=== PATIENT | female | born 1985 | race Caucasian/White ===

== ENCOUNTER → 2018-12-07 | Outpatient (CLI) | payer BC ==
[~2018-12-07] MED LIST: IOPAMIDOL 370 MG/ML 200 ML INFUS..BTL INJ ONE; NITROGLYCERIN 0.4 MG SUBL ONE; SODIUM CHLORIDE 0.9% 100 ML 100 ML ONE
--- NOTE | 2018-12-08 16:46 | Diagnostic Imaging Report ---
EXAM: CALCIUM SCORE AND CORONARY CTA INDICATION: ^[id number] ^[id number] ^PRECORDIAL PAIN COMPARISON: None. TECHNIQUE: Multi-detector CT technology was employed (64 MDCT LUXA). Minimal slice thickness was performed following the intravenous administration of contrast material. The patient was premedicated with 0.4 mg sublingual nitroglycerin for heart rate control and coronary dilation, respectively. No beta chavez was administered due to low heart rate during the exam. IV CONTRAST: 100 mL of Isovue-370 ORAL CONTRAST: None COMPLICATIONS: None RADIATION DOSE: Total DLP: 1492 mGy*cm Estimated effective dose: (DLP x 0.015 x size factor) mSv CTDIvol has been reviewed. It is below the limits set by the Radiation Protocol Committee (RPC). For optimization of anatomic evaluation, multiplanar reconstruction, maximum intensity projections, and advanced 3-D off-line postprocessing were performed on a dedicated stand-alone workstation under the direct supervision of the interpreting physician. QUALITY: Fair Study Limitations: Motion artifact limits evaluation of the coronary arteries. FINDINGS: CALCIUM SCORE: The observed Agatston Calcium Score of 0 is at percentile 50% for subjects of the same age and gender who are free of clinical cardiovascular disease and treated diabetes. The Agatston score for each vessel is as follows: LM: 0 LAD: 0 LCx: 0 RCA: 0 DISTRIBUTION OF THE CALCIFIED PLAQUES: No calcified plaques identified in the coronary arteries. CORONARY ANATOMY: There is normal origin of the coronary arteries. Left Main Coronary Artery: The left main is normal sized vessel that bifurcates into the LAD and circumflex. There is no evidence of atherosclerotic changes or stenotic disease. Left Anterior Descending Coronary Artery: The LAD is a normal size vessel that wraps around the apex. It gives rise to 2 acute diagonal branches. Motion artifact limits evaluation of the mid LAD. Otherwise, no evidence of atherosclerotic changes or stenotic disease. Left Circumflex Coronary Artery: The LCX is a normal size vessel, which is non-dominant. It gives rise to 2 obtuse marginal branches. There is no evidence of atherosclerotic changes or stenotic disease. Right Coronary Artery: The RCA is a normal size vessel, which is dominant. It gives rise to a conus branch, AV manny branch, and 2 acute marginal branches. In its distal segment it bifurcates into the PDA and PV branch. The mid RCA is nondiagnostic due to motion artifact. No significant atherosclerotic changes of stenotic disease in the remaining RCA. CARDIAC MORPHOLOGY AND FUNCTION: The right and left atria and ventricles are morphologically normal. LIMITED CHEST: Limited views of the visualized chest show no abnormality within chest wall and mediastinum. No mediastinal lymphadenopathy. The visualized lungs are clear. The visualized portions of the ascending and descending thoracic aorta are of normal size. LIMITED ABDOMEN: The spleen is mildly prominent measuring 12.2 cm in length. BONES: No acute osseous abnormalities. IMPRESSION: 1. Total Agatston Calcium Score: 0 that corresponds to percentile 50%, representing no identifiable calcified plaques in the coronary arteries. 2. Normal coronary anatomy. 3. Mid RCA and LAD are nondiagnostic due to motion artifact. Otherwise, no atherosclerotic changes or stenotic disease. CAD-ALEX: 0N Reference: [email or web address] Signed by: Dr. Elmira Winkler M.D. on 12/08/2018 4:43 PM
== END ==
LOC: CT 07:25
PROVIDERS: ATTEND Family Medicine
DX: R07.2 Precordial pain (principal)
CPT/HCPCS: 75574; 81025; 93880; Q9967